=== PATIENT | male | born 1990 | race American Indian/Alaskan Native ===

== ENCOUNTER 2020-08-03 15:08 | Emergency (ER) | payer MEDICAID ==
--- NOTE | 2020-08-03 15:54 | Emergency Department Report ---
Blank Doc - Documentation Documentation: 30-year-old male brought by mother for generalized abdominal pain. Exam: Abdominal distention with tenderness. 1- This initial assessment/diagnostic orders/clinical plan/ treatment(s) is/are subject to change based on pt's health status, clinical progression and re-assessment by fellow clinical providers in the ED. Further treatment and workup at subsequent clinical provers discretion. Patient/guardians urged not to elope from ED as their condition may be serious if not clinically assessed and managed. 2-labs 3-UA
[2020-08-03 16:22] LABS: Basophils # (Auto) 0.1 K/mm3 (0.0-0.1); Basophils % (Auto) 0.5 % (0.0-1.8); Eosinophils # (Auto) 0.3 K/mm3 (0.0-0.4); Eosinophils % (Auto) 2.7 % (0.0-4.3); Hematocrit 45.4 % (35.5-45.6); Hemoglobin 15.1 gm/dl (11.8-15.2); Lymphocytes % (Auto) 16.5 % (13.4-35.0); Mean Corpuscular HGB Conc 33 % (32-34); Mean Corpuscular Volume 84 fl (84-94); Monocytes # (Auto) 0.8 K/mm3 (0.0-0.8); Monocytes % (Auto) 6.8 % (0.0-7.3); Red Cell Distribution Width 15.4 % (13.2-15.2)
[2020-08-03 18:46] LABS: Platelet Count 229 K/mm3 (140-440)
[2020-08-03 19:35] LABS: Alanine Aminotransferase 32 units/L (7-56); Albumin 4.1 g/dL (3.9-5); BUN/Creatinine Ratio 9; Blood Urea Nitrogen 8 mg/dL (9-20); Calcium 9.3 mg/dL (8.4-10.2); Hemolysis Index 94
--- NOTE | 2020-08-03 21:37 | Emergency Department Report ---
ED Abdominal Pain HPI - General Chief Complaint: Abdominal Pain Stated Complaint: STOMACH ISSUES Time Seen by Provider: 08/03/20 15:40 Source: family Mode of arrival: Wheelchair Limitations: Physical Limitation - History of Present Illness Initial Comments: Patient is 30 years old male with history of cerebral palsy. Patient brought to the emergency room by his mother for evaluation of abdominal pain since yesterday. Mother stated that he has history of constipation. She stated that she gave him prune juice yesterday and some laxative [id number] but no improvement. She denied any fever, chills, nausea or vomiting. Upon exam she stated me that he is very hungry because he has been sitting in the waiting area for few hours. MD Complaint: abdominal pain Location: diffuse - Related Data Home Medications Medication Instructions Recorded Confirmed Last Taken Loratadine (Nf) [Claritin] 10 mg PO DAILY 07/04/14 03/04/15 02/27/15 Previous Rx's Medication Instructions Recorded Last Taken Type Nystatin [Nystatin SUSP] 5 ml PO QID #14 day 03/04/15 Unknown Rx polyethylene glycoL 3350 [Miralax 17 gm PO QDAY PRN #1 bottle 03/04/15 Unknown Rx 3350] Docusate Sodium [Docusol Kids] 100 mg RC TID #9 enema 04/12/16 Unknown Rx Magnesium Citrate [Citrate of 300 ml PO QDAY #1 bottle 04/12/16 Unknown Rx Magnesia] [id number]/Sod Sulf,Bicarb,Cl/KCl 4,000 ml PO Q6H PRN #1 soln.recon 04/12/16 Unknown Rx [Golytely Solution] Sennosides [Senna] 8.6 mg PO QHS PRN #20 tablet 04/12/16 Unknown Rx Allergies Allergy/AdvReac Type Severity Reaction Status Date / Time Penicillins Allergy Swelling Verified 08/03/20 15:33 ED Review of Systems ROS: Stated complaint: STOMACH ISSUES Other details as noted in HPI Comment: All other systems reviewed and negative Constitutional: denies: chills, fever Respiratory: denies: cough, shortness of breath Cardiovascular: denies: chest pain Gastrointestinal: abdominal pain, constipation. denies: nausea, vomiting, diarrhea Musculoskeletal: denies: back pain Neurological: denies: headache ED Past Medical Hx - Past Medical History Additional medical history: cerebral palsy. mental retardation - Surgical History Additional Surgical History: hernia repair - Social History Smoking Status: Never Smoker - Medications Home Medications: Home Medications Medication Instructions Recorded Confirmed Last Taken Type Loratadine (Nf) [Claritin] 10 mg PO DAILY 07/04/14 03/04/15 02/27/15 History Nystatin [Nystatin SUSP] 5 ml PO QID #14 day 03/04/15 Unknown Rx polyethylene glycoL 3350 [Miralax 17 gm PO QDAY PRN #1 bottle 03/04/15 Unknown Rx 3350] Docusate Sodium [Docusol Kids] 100 mg RC TID #9 enema 04/12/16 Unknown Rx Magnesium Citrate [Citrate of 300 ml PO QDAY #1 bottle 04/12/16 Unknown Rx Magnesia] [id number]/Sod Sulf,Bicarb,Cl/KCl 4,000 ml PO Q6H PRN #1 soln.recon 04/12/16 Unknown Rx [Golytely Solution] Sennosides [Senna] 8.6 mg PO QHS PRN #20 tablet 04/12/16 Unknown Rx ED Physical Exam - General Limitations: Physical Limitation General appearance: alert, in no apparent distress - Head Head exam: Present: atraumatic, normocephalic - ENT ENT exam: Present: mucous membranes moist - Neck Neck exam: Present: normal inspection - Respiratory Respiratory exam: Present: normal lung sounds bilaterally - Cardiovascular Cardiovascular Exam: Present: regular rate, normal rhythm, normal heart sounds - GI/Abdominal GI/Abdominal exam: Present: soft, normal bowel sounds. Absent: distended, tenderness, guarding, rebound, rigid, organomegaly, mass, bruit, pulsatile mass - Extremities Exam Extremities exam: Present: normal inspection, full ROM, normal capillary refill - Back Exam Back exam: Present: normal inspection, full ROM. Absent: CVA tenderness (R), CVA tenderness (L) - Neurological Exam Neurological exam: Present: alert, other (Patient in a wheelchair.) - Skin Skin exam: Present: warm, intact, normal color ED Course Vital Signs 08/03/20 22:41 Respiratory 18 Rate ED Medical Decision Making - Lab Data Result diagrams: 08/03/20 15:48 08/03/20 19:11 - Radiology Data Radiology results: report reviewed - Medical Decision Making Patient is 30 years old male with history of cerebral palsy. Patient brought to the emergency room by his mother for evaluation of abdominal pain since yesterday. Mother stated that he has history of constipation. She stated that she gave him prune juice yesterday and some laxative [id number] but no improvement. She denied any fever, chills, nausea or vomiting. Upon exam she stated me that he is very hungry because he has been sitting in the waiting area for few hours. Labs reviewed and is unremarkable. CT abdomen pelvis showed constipation. Patient given prescription for lactulose and Fleet enema and advised to follow- up with his primary doctor in the next 2 to 3 days and to return to the ER if he develop any new symptoms. Critical care attestation.: If time is entered above; I have spent that time in minutes in the direct care of this critically ill patient, excluding procedure time. ED Disposition Clinical Impression: Fecal impaction, Constipation, Abdominal pain Is pt being admited?: No Condition: Stable Instructions: Chronic Constipation, Abdominal Pain, Adult, [id number] Referrals: MARQUISE BARROS MD [Primary Care Provider] - 3-5 Days
--- NOTE | 2020-08-03 22:37 | Cat Scan Report ---
CT ABDOMEN AND PELVIS WITHOUT CONTRAST HISTORY: Patient complains of abdominal pain with constipation x 1 day.. COMPARISON: None. TECHNIQUE: CT images of the abdomen and pelvis were obtained without administration of intravenous co ntrast. All CT scans at this location are performed using CT dose reduction for ALARA by means of au tomated exposure control. FINDINGS: Lungs/bones: Lung bases are clear. No acute osseous abnormality or significant degenerative change. Abdomen/pelvis: There is a large amount of colonic stool in the rectosigmoid colon with mild wall th ickening. No significant upstream obstructive effect although there is a moderate amount of stool in the proximal colon as well. The liver, gallbladder, spleen, pancreas, adrenals, kidneys, and proximal GI tract appear unremarkabl e. Urinary bladder and prostate are unremarkable with no pelvic free fluid. IMPRESSION: 1. Findings of constipation with probable evolving fecal impaction distally. Signer Name: Al Howard MD Signed: 08/03/2020 10:32 PM Workstation Name: [id number]
[2020-08-03 23:05] VITALS: BP 146/90
== END 2020-08-03 23:05 ==
LOC: ED 15:08
DX: K56.41 Fecal impaction (principal); R10.9 Unspecified abdominal pain; Z88.0 Allergy status to penicillin; Z79.899 Other long term (current) drug therapy; Z98.890 Other specified postprocedural states
CPT/HCPCS: 36415; 74176; 80053; 83690; 85025